=== PATIENT | male | born 1980 | race Two or more races ===

== ENCOUNTER 2020-09-11 19:58 | Emergency (ER) | payer MEDICAID ==
[~2020-09-11] VITALS: Ht 172.7 cm; Wt 90.7 kg
[2020-09-12 00:16] VITALS: BP 144/86
== END 2020-09-12 00:03 | disposition home or self-care (01) ==
LOC: ER 20:02
DX: S63.602A Unspecified sprain of left thumb, initial encounter (principal); S00.412A Abrasion of left ear, initial encounter; Y04.2XXA Assault by strike against or bumped into by another person, initial encounter; Y93.89 Activity, other specified; Y92.89 Other specified places as the place of occurrence of the external cause; Y99.8 Other external cause status; R51.9 Headache, unspecified
CPT/HCPCS: 70450; 70486; 73060